=== PATIENT | female | born 1935 | race Caucasian/White ===

== ENCOUNTER → 2017-11-22 | Outpatient (REF) | payer MEDICARE ==
[2017-11-22 12:10] LABS: BASO # 0.1 10^3/uL (0.0-0.2); BASO % 0.8 % (0.0-1.0); EOS # 0.4 10^3/uL (0.0-0.50); HEMOGLOBIN 12.3 g/dl (12.0-16.0); IMMATURE GRANULOCYTE % 0.6 % (0-3.0); LYMPH # 0.9 10^3/uL (1.5-4.5); LYMPH % 13.6 % (24.0-44.0); MEAN CORPUSCULAR HEMOGLOBIN 30.9 pg (27.0-33.0); MEAN CORPUSCULAR HGB CONC 32.4 g/dl (32.0-36.5); MEAN CORPUSCULAR VOLUME 95.5 fl (80.0-96.0); MONO # 0.5 10^3/uL (0.0-0.8); NEUTROPHILS # 4.6 10^3/uL (1.8-7.7); PLATELET COUNT, AUTOMATED 232 10^3/uL (150-450); RED BLOOD COUNT 3.98 10^6/uL (4.00-5.40); RED CELL DISTRIBUTION WIDTH 13.1 % (11.5-14.5); WHITE BLOOD COUNT 6.5 10^3/uL (4.0-10.0)
[2017-11-22 12:31] LABS: TOTAL 25(OH) VITAMIN D 48.4 NG/ML (30.0-100.0)
[2017-11-22 12:38] LABS: ALBUMIN 3.8 GM/DL (3.2-5.2); ALBUMIN/GLOBULIN RATIO 1.36 (1.00-1.93); ALKALINE PHOSPHATASE 97 U/L (45-117); ALT/SGPT 26 U/L (12-78); ANION GAP 6 MEQ/L (8-16); AST/SGOT 20 U/L (7-37); BILIRUBIN,TOTAL 0.5 MG/DL (0.2-1.0); BLOOD UREA NITROGEN 31 MG/DL (7-18); CALCIUM LEVEL 8.8 MG/DL (8.8-10.2); CARBON DIOXIDE LEVEL 29 MEQ/L (21-32); CHLORIDE LEVEL 111 MEQ/L (98-107); CHOLESTEROL LEVEL 122 MG/DL (<200); CHOLESTEROL RISK RATIO 2.772 (<5); CREATININE FOR GFR 1.27 MG/DL (0.55-1.30); GLOMERULAR FILTRATION RATE 42.8 (>32); GLUCOSE, FASTING 81 MG/DL (70-100); HDL CHOLESTEROL 44 MG/DL (>40); LDL CHOLESTEROL 40.6 MG/DL (<100); NON-HDL-C 78 MG/DL; POTASSIUM SERUM 3.6 MEQ/L (3.5-5.1); SODIUM LEVEL 146 MEQ/L (136-145); TOTAL PROTEIN 6.6 GM/DL (6.4-8.2); TRIGLYCERIDES LEVEL 187 MG/DL (<150)
== END ==
LOC: M LABDRAW1 11:51
DX: E78.5 Hyperlipidemia, unspecified (principal); I10 Essential (primary) hypertension; R73.01 Impaired fasting glucose; E55.9 Vitamin D deficiency, unspecified
CPT/HCPCS: 80053

== ENCOUNTER → 2018-05-24 | Outpatient (REF) | payer MEDICARE | LOC: M LAB REF 13:00 | DX: R30.0 Dysuria (principal) | CPT/HCPCS: 87186 ==

== ENCOUNTER → 2018-06-05 | Outpatient (REF) | payer MEDICARE ==
[2018-06-05 12:33] LABS: ANION GAP 8 MEQ/L (8-16); BLOOD UREA NITROGEN 22 MG/DL (7-18); CALCIUM LEVEL 8.3 MG/DL (8.8-10.2); CARBON DIOXIDE LEVEL 30 MEQ/L (21-32); CHLORIDE LEVEL 108 MEQ/L (98-107); CREATININE FOR GFR 1.06 MG/DL (0.55-1.30); GLOMERULAR FILTRATION RATE 52.6 (>32); GLUCOSE, FASTING 86 MG/DL (70-100); POTASSIUM SERUM 3.7 MEQ/L (3.5-5.1); SODIUM LEVEL 146 MEQ/L (136-145)
== END ==
LOC: M LABDRAW1 11:49
DX: I10 Essential (primary) hypertension (principal); R73.01 Impaired fasting glucose
CPT/HCPCS: 80048

== ENCOUNTER 2018-06-15 17:15 | Emergency (ER) | payer MEDICARE ==
[2018-06-15 17:56] LABS: BASO % 0.4 % (0.0-1.0); EOS # 0.1 10^3/uL (0.0-0.50); EOS % 0.6 % (0.0-3.0); HEMATOCRIT 38.8 % (36.0-47.0); HEMOGLOBIN 12.9 g/dl (12.0-15.5); IMMATURE GRANULOCYTE % 0.4 % (0-3.0); LYMPH # 0.9 10^3/uL (1.5-4.5); LYMPH % 11.7 % (24.0-44.0); MEAN CORPUSCULAR HEMOGLOBIN 31.1 pg (27.0-33.0); MEAN CORPUSCULAR HGB CONC 33.2 g/dl (32.0-36.5); MEAN CORPUSCULAR VOLUME 93.5 fl (80.0-96.0); MONO # 0.4 10^3/uL (0.0-0.8); MONO % 4.3 % (0.0-5.0); NEUTROPHILS # 6.7 10^3/uL (1.8-7.7); NEUTROPHILS % 82.6 % (36.0-66.0); PLATELET COUNT, AUTOMATED 250 10^3/uL (150-450); RED BLOOD COUNT 4.15 10^6/uL (4.00-5.40); RED CELL DISTRIBUTION WIDTH 12.9 % (11.5-14.5); WHITE BLOOD COUNT 8.1 10^3/uL (4.0-10.0)
[2018-06-15 18:22] LABS: ANION GAP 8 MEQ/L (8-16); BLOOD UREA NITROGEN 21 MG/DL (7-18); CALCIUM LEVEL 8.3 MG/DL (8.8-10.2); CARBON DIOXIDE LEVEL 29 MEQ/L (21-32); CHLORIDE LEVEL 106 MEQ/L (98-107); CPK CREATINE PHOSPHOKINASE 72 U/L (26-192); CREATININE FOR GFR 1.12 MG/DL (0.55-1.30); GLOMERULAR FILTRATION RATE 49.3 (>32); GLUCOSE, FASTING 139 MG/DL (70-100); MB/CK RELATIVE INDEX 2.78 (< OR =4); POTASSIUM SERUM 3.4 MEQ/L (3.5-5.1); SODIUM LEVEL 143 MEQ/L (136-145); TROPONIN I < 0.02 NG/ML (< 0.10)
[2018-06-15] MEDS: hydrALAZINE INJ 20 MG/ML VIAL IV (20:45)
[2018-06-15] MEDS: **hydrALAZINE** 10 MG TAB PO (22:18)
== END 2018-06-15 22:32 | disposition home or self-care (01) ==
LOC: M ED 17:15
DX: I16.0 Hypertensive urgency (principal); I44.0 Atrioventricular block, first degree; I10 Essential (primary) hypertension; Z79.82 Long term (current) use of aspirin; Z79.01 Long term (current) use of anticoagulants; Z79.899 Other long term (current) drug therapy
CPT/HCPCS: 70450

== ENCOUNTER → 2018-12-03 | Outpatient (REF) | payer MEDICARE ==
[~2018-12-03] MED LIST: /ALEN70TA; BABY81CH; BENI20TA11; CALA120T2 OR; COUM1TAB18; COUM1TAB18 PO; HYDR10TAB PO; LIPI1TAB2 OR; LOSA50TA20 PO; MAPA500T17 PO; NIAC500T; NUCY50TA PO; PERC5TAB8; flonase nasal spray; vitamin D OR
[2018-12-03 12:33] LABS: BASO % 0.7 % (0.0-1.0); EOS # 0.2 10^3/uL (0.0-0.50); EOS % 3.6 % (0.0-3.0); HEMOGLOBIN 12.9 g/dl (12.0-15.5); LYMPH # 0.7 10^3/uL (1.5-4.5); LYMPH % 12.6 % (24.0-44.0); MEAN CORPUSCULAR HEMOGLOBIN 31.3 pg (27.0-33.0); MEAN CORPUSCULAR HGB CONC 33.1 g/dl (32.0-36.5); MEAN CORPUSCULAR VOLUME 94.7 fl (80.0-96.0); MONO # 0.4 10^3/uL (0.0-0.8); MONO % 6.7 % (0.0-5.0); NEUTROPHILS # 4.3 10^3/uL (1.8-7.7); NEUTROPHILS % 75.9 % (36.0-66.0); PLATELET COUNT, AUTOMATED 241 10^3/uL (150-450); RED BLOOD COUNT 4.12 10^6/uL (4.00-5.40); WHITE BLOOD COUNT 5.6 10^3/uL (4.0-10.0)
[2018-12-03 12:45] LABS: CALCIUM LEVEL 8.7 MG/DL (8.8-10.2); CHOLESTEROL RISK RATIO 2.54 (<5); CREATININE FOR GFR 1.07 MG/DL (0.55-1.30); POTASSIUM SERUM 3.6 MEQ/L (3.5-5.1)
== END ==
LOC: M LABDRAW1 11:27
PROVIDERS: ATTEND Physician Assistant Medical
DX: I10 Essential (primary) hypertension (principal)

== ENCOUNTER → 2019-06-17 | Outpatient (CLI) | payer MEDICARE ==
[2019-06-17 10:41] LABS: HEMOGLOBIN A1c 5.8 %
[2019-06-17 10:56] LABS: CHOLESTEROL RISK RATIO 2.372 (<5); CREATININE FOR GFR 1.01 MG/DL (0.55-1.30); GLOMERULAR FILTRATION RATE 55.5 (>32); POTASSIUM SERUM 4.1 MEQ/L (3.5-5.1)
== END ==
LOC: M WUC 08:24
PROVIDERS: ATTEND Physician Assistant Medical
DX: I10 Essential (primary) hypertension (principal); E55.9 Vitamin D deficiency, unspecified; R73.01 Impaired fasting glucose

== ENCOUNTER → 2020-02-04 | Outpatient (CLI) | payer MEDICARE ==
[2020-02-04 10:02] LABS: ALBUMIN 3.5 GM/DL (3.2-5.2); BILIRUBIN,TOTAL 0.5 MG/DL (0.2-1.0); CALCIUM LEVEL 8.5 MG/DL (8.8-10.2); CREATININE FOR GFR 1.08 MG/DL (0.55-1.30); GLOMERULAR FILTRATION RATE 51.3 (>32); POTASSIUM SERUM 3.5 MEQ/L (3.5-5.1); TOTAL PROTEIN 6.7 GM/DL (6.4-8.2)
[2020-02-04 10:09] LABS: TOTAL 25(OH) VITAMIN D 36.4 NG/ML (30.0-100.0)
[2020-02-04 10:18] LABS: HEMOGLOBIN A1c 5.7 %
== END ==
LOC: M WUC 08:07
PROVIDERS: ATTEND Physician Assistant
DX: R73.01 Impaired fasting glucose (principal); E55.9 Vitamin D deficiency, unspecified; Z79.899 Other long term (current) drug therapy

== ENCOUNTER → 2020-05-06 | Outpatient (CLI) | payer MEDICARE ==
[2020-05-06 12:51] LABS: ALBUMIN 3.4 GM/DL (3.2-5.2); BILIRUBIN,DIRECT 0.2 MG/DL (0.0-0.2); BILIRUBIN,TOTAL 0.5 MG/DL (0.2-1.0); CHOLESTEROL RISK RATIO 2.632 (<5); TOTAL PROTEIN 6.5 GM/DL (6.4-8.2)
== END ==
LOC: M WUC 08:16
PROVIDERS: ATTEND Internal Medicine Interventional Cardiology
DX: E78.2 Mixed hyperlipidemia (principal); I10 Essential (primary) hypertension

== ENCOUNTER → 2020-06-22 | Outpatient (CLI) | payer MEDICARE ==
[2020-06-22 16:38] LABS: CHOLESTEROL RISK RATIO 2.226 (<5)
== END ==
LOC: M WUC 10:39
PROVIDERS: ATTEND Physician Assistant Medical
DX: E78.5 Hyperlipidemia, unspecified (principal)

== ENCOUNTER → 2020-06-23 | Outpatient (REF) | payer MEDICARE | LOC: M LAB REF 17:00 | PROVIDERS: ATTEND Physician Assistant Medical | DX: N39.0 Urinary tract infection, site not specified (principal) ==

== ENCOUNTER → 2021-02-22 | Outpatient (CLI) | payer MEDICARE ==
--- NOTE | 2021-02-22 13:41 | REP ---
INDICATION: LOW BACK PAIN COMPARISON: None. TECHNIQUE: AP, lateral, bilateral oblique, and coned-down views of the lumbar spine. FINDINGS: Age-related osteopenia and chronic mild dextroconvex scoliosis noted. Advanced multilevel degenerative changes include osteophytosis, endplate sclerosis, disc space narrowing and facet hypertrophy. No acute fracture/compression injury or subluxation. IMPRESSION: Advanced multilevel degenerative spondylosis. <Electronically signed by Tod Clemente > 02/22/21 [id number]
== END ==
LOC: M RAD 13:11
PROVIDERS: ATTEND Family Medicine
DX: M54.5 Low back pain (principal); M47.816 Spondylosis without myelopathy or radiculopathy, lumbar region

== ENCOUNTER → 2021-04-12 | Outpatient (CLI) | payer MEDICARE ==
--- NOTE | 2021-04-13 13:58 | REPVR ---
PROCEDURE INFORMATION: Exam: MR Lumbar Spine Without Contrast Exam date and time: 04/12/2021 3:55 PM Age: 85 years old Clinical indication: Low back pain; Additional info: Radiculopathy TECHNIQUE: Imaging protocol: Multiplanar magnetic resonance images of the lumbar spine without intravenous contrast. COMPARISON: CR Spine. Lumbosacral, complete 02/22/2021 1:29 PM (report not provided) FINDINGS: Vertebrae: Vertebral body heights are intact. There is approximately 3 mm retrolisthesis at L4-L5 and L2-L3. Alignment is otherwise maintained. No pars defect is identified. Spinal cord: The conus is unremarkable in appearance, with its tip at the L1 level. Multilevel findings: There are varying degrees of disc desiccation indicating intervertebral disc degeneration. There also variable degenerative endplate changes. T11-T12: Included on the sagittal sequences only, there appears to be a disc bulge leading to mild bilateral neural foraminal narrowing. T12-L1: Included on the sagittal sequences only, there appears to be a disc bulge leading to very mild right and mild to moderate left neural foraminal narrowing. L1-L2: Disc osteophyte complex combining with facet arthrosis to lead to moderate right and mild left neural foraminal narrowing without significant spinal stenosis. There is small fluid in the facet joints. L2-L3: Disc osteophyte complex combining with facet arthrosis to lead to mild to moderate right and mild left neural foraminal narrowing without significant spinal stenosis. L3-L4: Disc osteophyte complex combining with facet arthrosis to lead to mild right and very mild left neural foraminal narrowing without significant spinal stenosis. L4-L5: Disc osteophyte complex combining with facet arthrosis to lead to moderate to severe right and moderate left neural foraminal narrowing with mild right and very mild left lateral recess narrowing, without significant central canal stenosis. There is small fluid in the left facet joint. L5-S1: Disc osteophyte complex combining with facet arthrosis to lead to severe right and moderate to severe left neural foraminal narrowing with mild bilateral lateral recess narrowing, without significant central canal stenosis. There is small fluid in the right facet joint. Soft tissues: Unremarkable. Kidneys and ureters: There appear to be bilateral renal cysts, including parapelvic cysts. IMPRESSION: 1. Multilevel disc desiccation indicating intervertebral disk degeneration with disc displacements as described. 2. Appearance of bilateral renal cysts, including parapelvic cysts. May consider dedicated imaging. COMMENTS: If surgery is considered, recommend level confirmation. Electronically signed by: Faisal Cuellar On 04/13/2021 13:58:01 PM
== END ==
LOC: M PLAIMG 15:19
PROVIDERS: ATTEND Physician Assistant Surgical
DX: M51.36 Other intervertebral disc degeneration, lumbar region (principal); M47.896 Other spondylosis, lumbar region; M54.16 Radiculopathy, lumbar region; Z96.653 Presence of artificial knee joint, bilateral; N28.1 Cyst of kidney, acquired

== ENCOUNTER → 2021-06-07 | Outpatient (CLI) | payer MEDICARE ==
[2021-06-07 13:22] LABS: ALBUMIN 3.3 GM/DL (3.2-5.2); BILIRUBIN,TOTAL 0.6 MG/DL (0.2-1.0); CALCIUM LEVEL 9.3 MG/DL (8.8-10.2); CHOLESTEROL RISK RATIO 2.44 (<5); CREATININE FOR GFR 1.02 MG/DL (0.55-1.30); GLOMERULAR FILTRATION RATE 54.6 (>32); TOTAL PROTEIN 6.5 GM/DL (6.4-8.2)
== END ==
LOC: M WUC 10:11
PROVIDERS: ATTEND Physician Assistant Medical
DX: E78.5 Hyperlipidemia, unspecified (principal)

== ENCOUNTER → 2021-08-08 | Outpatient (REF) | payer MEDICARE | LOC: M LAB REF 17:00 | PROVIDERS: ATTEND Nurse Practitioner Family | DX: N39.0 Urinary tract infection, site not specified (principal) ==

== ENCOUNTER → 2021-11-08 | Outpatient (REF) | payer MEDICARE ==
[2021-11-08 15:44] LABS: ALBUMIN 3.8 GM/DL (3.2-5.2); BILIRUBIN,TOTAL 0.5 MG/DL (0.2-1.0); CALCIUM LEVEL 9.3 MG/DL (8.8-10.2); CREATININE FOR GFR 1.13 MG/DL (0.55-1.30); GLOMERULAR FILTRATION RATE 48.5 (>32); POTASSIUM SERUM 4.3 MEQ/L (3.5-5.1); TOTAL PROTEIN 7.1 GM/DL (6.4-8.2)
== END ==
LOC: M WUC 14:26
PROVIDERS: ATTEND Nurse Practitioner Family
DX: N39.0 Urinary tract infection, site not specified (principal)

== ENCOUNTER → 2022-06-01 | Outpatient (CLI) | payer MEDICARE ==
[2022-06-01 12:34] LABS: BASO % 0.4 % (0.0-1.0); EOS # 0.1 10^3/uL (0.0-0.5); EOS % 1.2 % (0.0-3.0); HEMATOCRIT 42.1 % (36.0-47.0); HEMOGLOBIN 13.6 g/dl (12.0-15.5); LYMPH # 0.9 10^3/uL (1.5-5.0); LYMPH % 10.9 % (24.0-44.0); MEAN CORPUSCULAR HEMOGLOBIN 31.2 pg (27.0-33.0); MEAN CORPUSCULAR HGB CONC 32.3 g/dl (32.0-36.5); MEAN CORPUSCULAR VOLUME 96.6 fl (80.0-96.0); MONO # 0.5 10^3/uL (0.0-0.8); NEUTROPHILS # 6.7 10^3/uL (1.5-8.5); PLATELET COUNT, AUTOMATED 261 10^3/uL (150-450); RED BLOOD COUNT 4.36 10^6/uL (4.00-5.40); WHITE BLOOD COUNT 8.3 10^3/uL (4.0-10.0)
[2022-06-01 13:34] LABS: ALBUMIN 3.5 GM/DL (3.2-5.2); BILIRUBIN,TOTAL 0.6 MG/DL (0.2-1.0); CALCIUM LEVEL 8.8 MG/DL (8.8-10.2); CREATININE FOR GFR 1.06 MG/DL (0.55-1.30); GLOMERULAR FILTRATION RATE 52.1 (>32); POTASSIUM SERUM 3.6 MEQ/L (3.5-5.1); TOTAL PROTEIN 6.6 GM/DL (6.4-8.2)
[2022-06-01 13:38] LABS: HEMOGLOBIN A1c 5.4 %
== END ==
LOC: M WUC 10:43
PROVIDERS: ATTEND Nurse Practitioner Family
DX: I10 Essential (primary) hypertension (principal); R73.01 Impaired fasting glucose

== ENCOUNTER → 2023-01-09 | Outpatient (REF) | payer MEDICARE | LOC: M LAB REF 17:18 | PROVIDERS: ATTEND Nurse Practitioner Family | DX: R35.0 Frequency of micturition (principal) ==

== ENCOUNTER → 2023-06-11 | Outpatient (CLI) | payer MEDICARE ==
[2023-06-11 13:41] LABS: BASO % 0.6 % (0.0-1.0); EOS # 0.2 10^3/uL (0.0-0.5); EOS % 2.5 % (0.0-3.0); HEMATOCRIT 40.2 % (36.0-47.0); HEMOGLOBIN 13.3 g/dl (12.0-15.5); LYMPH # 1.1 10^3/uL (1.5-5.0); LYMPH % 15.9 % (24.0-44.0); MEAN CORPUSCULAR HEMOGLOBIN 31.7 pg (27.0-33.0); MEAN CORPUSCULAR HGB CONC 33.1 g/dl (32.0-36.5); MEAN CORPUSCULAR VOLUME 95.9 fl (80.0-96.0); MONO # 0.5 10^3/uL (0.0-0.8); MONO % 7.4 % (2.0-8.0); PLATELET COUNT, AUTOMATED 262 10^3/uL (150-450); RED BLOOD COUNT 4.19 10^6/uL (4.00-5.40); WHITE BLOOD COUNT 6.8 10^3/uL (4.0-10.0)
[2023-06-11 13:58] LABS: ALBUMIN 3.5 G/DL (3.2-5.2); BILIRUBIN,TOTAL 0.7 MG/DL (0.3-1.2); CHOLESTEROL RISK RATIO 2.66 (<5); CREATININE FOR GFR 1.04 MG/DL (0.55-1.30); GLOMERULAR FILTRATION RATE 53.1 (>32); HDL CHOLESTEROL 43.1 MG/DL (>40); LDL CHOLESTEROL 34.9 MG/DL (<100); NON-HDL-C 71.9 MG/DL; POTASSIUM SERUM 4.1 MMOL/L (3.5-5.1); TOTAL PROTEIN 6.5 G/DL (5.7-8.2)
== END ==
LOC: M WUC 09:16
PROVIDERS: ATTEND Registered Nurse
DX: I10 Essential (primary) hypertension (principal); E78.5 Hyperlipidemia, unspecified

== ENCOUNTER → 2023-09-27 | Outpatient (REF) | payer MEDICARE ==
[~2023-09-27] MED LIST changes: +HYDR-161 PO; -HYDR10TAB PO
== END ==
LOC: M LAB REF 17:06
PROVIDERS: ATTEND Registered Nurse
DX: R30.0 Dysuria (principal); R35.0 Frequency of micturition